=== PATIENT | female | born 1990 | race Caucasian/White ===

== ENCOUNTER 2016-10-09 05:30 | Day surgery (SDC) | payer MEDICAID ==
[2016-10-07 11:35] LABS: BASOPHILS 0.6 % (0-2); HEMATOCRIT 39.8 % (36.0-48.0); HEMOGLOBIN 12.8 g/dL (12-16); IMMATURE GRANULOCYTES 0.2 % (0-5); LYMPHOCYTES 26.6 % (15-50); MCH 28.3 pg (26.0-34.0); MCHC 32.2 g/dL (31.0-37.0); MCV 88.1 fL (80.0-100.0); MEAN PLATELET VOLUME 10.7 fL (7.4-10.4); MONOCYTES 8.4 % (2-11); NEUTROPHILS 50.2 % (40-80); PLATELET COUNT 233 10x3/uL (130-400); RBC 4.52 10x6/uL (4.00-5.40); RDW 15.7 % (11.5-14.5); WBC 6.4 10x3/uL (4.8-10.8)
[2016-10-07 11:45] LABS: ANION GAP 12.9 mmol/L (8-16); CALCIUM 8.7 mg/dL (8.5-10.1); CARBON DIOXIDE 26.3 mmol/L (21.0-32.0); POTASSIUM - SERUM 4.2 mmol/L (3.5-5.1)
[~2016-10-09] VITALS: Ht 170.2 cm; Wt 60.8 kg
[~2016-10-09 05:30] MED LIST: BUSPAR 15 MG TA15 MG PO; IBUPROFEN600 MG PO; LATUDA80 MG PO; LEVOTHYROXINE50 MCG PO; LO LOESTRIN FE PO; PERCOCET 5-3251 TAB PO; PROAIR HFA8.5 GM; XANAX1 MG PO; ZITHROMAX250 MG
[2016-10-09 07:28] LABS: HCG URINE NEGATIVE (NEGATIVE)
[2016-10-09 07:39] VITALS: BP 104/68; Ht 170.2 cm; Wt 60.8 kg
--- NOTE | 2016-10-09 15:10 | NUR ---
1410--PT COMPLAINS OF PAIN, RATES PAIN 09/30. DEMEROL 50MG X1 TAB GIVEN PO FOR PAIN, WILL CONTINUE TO MONITOR. TIFFANIE NAJERA 1440--PT STATES PAIN IS BETTER, REQUESTING TO LEAVE. PT HAS VOIDED, IV DC'D. TIFFANIE NAJERA 1450--DISCHARGE INSTRUCTIONS GIVEN, PT VERBALIZES UNDERSTANDING. PT OFF UNIT VIA WC. TIFFANIE NAJERA
== END 2016-10-09 14:50 | disposition home or self-care (01) ==
LOC: D.OPS 05:30 → D.PAN 08:30 → D.OPS 08:30 → D.PAN 09:30 → D.OPS 10:00
PROVIDERS: Obstetrics & Gynecology
DX: Z30.2 Encounter for sterilization (principal); Z01.812 Encounter for preprocedural laboratory examination

== ENCOUNTER 2017-12-01 10:14 | Emergency (ER) | payer MEDICAID ==
[~2017-12-01] VITALS: Ht 170.2 cm; Wt 53.6 kg
[2017-12-01 10:35] VITALS: Ht 170.2 cm; Wt 53.6 kg
[2017-12-01 11:30] LABS: BASOPHILS 0.5 % (0-2); EOSINOPHILS 1.2 % (0-7); HEMATOCRIT 42.4 % (36.0-48.0); HEMOGLOBIN 14.4 g/dL (12-16); LYMPHOCYTES 24.9 % (15-50); MCH 29.8 pg (26.0-34.0); MCV 87.6 fL (80.0-100.0); MEAN PLATELET VOLUME 11.4 fL (7.4-10.4); NEUTROPHILS 65.4 % (40-80); PLATELET COUNT 216 10x3/uL (130-400); RBC 4.84 10x6/uL (4.00-5.40); RDW 14.9 % (11.5-14.5)
[2017-12-01 11:44] LABS: APPEARANCE SL CLDY (CLEAR); BILIRUBIN NEGATIVE (NEGATIVE); COLOR YELLOW (YELLOW); GLUCOSE NEGATIVE (NEGATIVE); KETONE NEGATIVE (NEGATIVE); NITRITE NEGATIVE (NEGATIVE); PROTEIN NEGATIVE (NEGATIVE)
[2017-12-01 11:45] LABS: ALBUMIN 3.5 g/dL (3.4-5.0); ALKALINE PHOSPHATASE 75 U/L (46-116); ALT (SGPT) 14 U/L (10-68); BILIRUBIN - TOTAL 0.44 mg/dL (0.2-1.3); CALC OSMOLALITY 269 mosm/kg (275-300); CARBON DIOXIDE 24.1 mmol/L (21.0-32.0); CHLORIDE - SERUM 102 mmol/L (98-107); CREATININE - SERUM 0.9 mg/dL (0.6-1.3); GLUCOSE 118 mg/dL (74-106); POTASSIUM - SERUM 3.5 mmol/L (3.5-5.1); SODIUM 135 mmol/L (136-145); UREA NITROGEN 9 mg/dL (7-18); eGFR NON AFRICAN AMERICAN 79 mL/min (90-120)
[2017-12-01 11:47] LABS: BACTERIA MODERATE /hpf (NONE SEEN); MUCUS <1+ /lpf (NONE SEEN); RED CELLS - URINE RARE /hpf (0-5)
[2017-12-01] MEDS ORDERED: BUTALB-APAP-CA1 EACH PO (14:06)
[2017-12-01] MEDS ORDERED: MACROBID100 MG PO (14:17)
[2017-12-01 14:47] VITALS: BP 112/79
== END 2017-12-01 14:49 | disposition home or self-care (01) ==
LOC: D.ER 10:14
PROVIDERS: Family Medicine
DX: N39.0 Urinary tract infection, site not specified (principal); R51 Headache; E86.0 Dehydration; R11.2 Nausea with vomiting, unspecified